=== PATIENT | female | born 1975 | race Caucasian/White ===

== ENCOUNTER 2016-10-22 16:27 | Emergency (ER) | payer MEDICAID | END 2016-10-22 21:10 | disposition home or self-care (01) | LOC: D.ER 16:27 | DX: S30.0XXA Contusion of lower back and pelvis, initial encounter (principal); W19.XXXA Unspecified fall, initial encounter; Y93.89 Activity, other specified; Y92.019 Unspecified place in single-family (private) house as the place of occurrence of the external cause; M79.605 Pain in left leg; M79.604 Pain in right leg; G71.0 Muscular dystrophy; M35.9 Systemic involvement of connective tissue, unspecified ==